=== PATIENT | female | born 1975 | race African-American/Black ===

== ENCOUNTER 2020-02-17 14:41 | Emergency (ER) | payer OTHER ==
[~2020-02-17] VITALS: Ht 162.6 cm; Wt 93.0 kg
[2020-02-17 14:48] VITALS: BP 152/99
[2020-02-17] MEDS ORDERED: PERIDEX15 ML MM (15:00)
[2020-02-17] MEDS ORDERED: IBUPROFEN600 M1 ORAL (15:00)
[2020-02-17 15:04] VITALS: BP 143/87
--- NOTE | 2020-02-17 15:06 | Emergency Room Report ---
History of Present Illness General Chief Complaint: Toothache Source: Patient Present Illness HPI Disclaimer: Please note that this report is being documented using [employer] technology. This can lead to erroneous entry secondary to incorrect interpretation by the dictating instrument. HPI: 44-year-old female presents for evaluation of toothache. She is complaining of pain in the posterior molars upper and lower on the left side. States she had transient tooth pain in the right molars yesterday. She states she was supposed to schedule wisdom tooth extraction with her dentist but is not yet done so. Unable to see dentistry this morning. Took ibuprofen earlier but pain persist. Denies gum swelling, bleeding, laxity in teeth, malocclusion , dental trauma or other changes in health. Denies fever, chills, difficulty swallowing, oral swelling, stridor or difficulty tolerating secretions. 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 EOMI. poor dentition. Multiple metallic crowns and fillings present. Posterior molars just slightly exposed above the gumline. No gingival edema, erythema, bleeding, ulcerations, skin sloughing breakdown or other abnormalities. No obvious abscess. No subluxation or avulsions. No dental fractures noted. Over the 18th tooth there is possibly a missing portion of metallic filling Resp: Normal work of breathing Skin: Intact. No abrasions, laceration or rash over the exposed skin MSK: Normal tone and bulk. Moving all extremities. No obvious deformity. Neuro: Awake and alert. Mentating appropriately Medical Decision Making Diagnostic Impression: Primary Impression: Tooth ache ER Course 44-year-old female presents for evaluation of toothache. Pain in the left side of the mouth present since this morning and tooth ache on the right side is now resolved. Patient is supposed to schedule excision of her partially impacted wisdom teeth but has not yet followed up with dentistry. No evidence of periapical abscess, gingival infection or trauma otherwise. Do not believe the patient requires antibiotics at this time she is otherwise well-appearing. Will start high-dose ibuprofen and Peridex oral rinse. Will refer to dentistry clinics in the area. Discussed reasons to return to the ED. Understands agrees with the treatment plan. Last Vital Signs Date Time Temp Pulse Resp B/P (MAP) Pulse Ox O2 Delivery O2 Flow Rate FiO2 02/17/20 14:48 98.8 96 15 152/99 95 Room Air Disposition: HOME, SELF-CARE Condition: Stable Scripts Ibuprofen* (MOTRIN*) 600 Mg Tablet 600 MG ORAL Q6H PRN for For Pain, #30 TAB 0 Refills Prov: Terrance Quinn MD 02/17/20 Chlorhexidine Gluconate (Peridex) 15 Ml Mouthwash 15 ML MM BID for 10 Days, #120 ML Prov: Terrance Quinn MD 02/17/20 Referrals: [facility](age 2-12) - Orthodontic Clinic - Hours: Sun,Sun,, 8:15am and 1pm (new patient screening), Tu. 1pm. Emergency clinic Sunday - Sunday 8:30am and 1pm, Tues. 1pm. *Call to check if clinic is open; No appointment necessary for the first visit ( new patient screening), Arrive 15-30 minutes early as it is first come, first serve. [facility] PEDS [facility] - [facility] Location: 2nd Floor Room [address] INFO: Sun & Sun-8:30am-4:30pm, - 8:30am - 7pm, - Emergency only, Sun- 8:30am-11:30am and afternoon emergency only [facility] INFO: New Patient Screening: Sun- 8am-1pm Sun- 9am -5pm and Sun 2pm-5pm Patient Instructions: Dental Pain Additional Instructions: Follow-up with your dentist regarding extraction of your wisdom teeth as soon as possible. Use the medicated mouthwash and the ibuprofen as prescribed. Return with new or worsening symptoms. Terrance Quinn MD Feb 17, 2020 15:06
== END 2020-02-17 15:04 | disposition home or self-care (01) ==
LOC: EMR 14:55
DX: K08.89 Other specified disorders of teeth and supporting structures (principal); I10 Essential (primary) hypertension
CPT/HCPCS: 99282